=== PATIENT | male | born 1990 | race Caucasian/White ===

== ENCOUNTER → 2024-12-15 | Outpatient (CLI) | payer OTHER ==
[~2024-12-15] MED LIST: Norco 5-325 Ta1 EACH PO; SERT25 PO; Zithromax250 MG PO
== END ==
LOC: LAB 10:21 → LAB SHORT 10:21
DX: L02.31 Cutaneous abscess of buttock (principal)
CPT/HCPCS: 87070; 87075; 87076; 87185; 87205